=== PATIENT | male | born 1960 ===

== ENCOUNTER 2022-02-19 08:39 | Day surgery (SDC) | payer MEDICARE, OTHER ==
[~2022-02-19] VITALS: Ht 177.8 cm; Wt 85.7 kg
[2022-02-19] MEDS ORDERED: PROP10 (09:07)
[2022-02-19] MEDS ORDERED: CITALOPRAM HBR10 MG (09:07)
--- NOTE | 2022-02-19 09:44 | NUR ---
02/19/22 0943 Rima Ch THREE ATTEMPTS AT IV. FIRST ATTEMPT AT IV BY MA IN RIGHT HAND MISSED. SECOND ATTEMPT AT IV BY MA IN RIGHT AC UNABLE TO ADVANCE. THIRD ATTEMPT AT IV BY MA IN LEFT HAND SUCCESFUL.
== END 2022-02-19 11:25 | disposition home or self-care (01) ==
LOC: ORSCSDS 08:39
PROVIDERS: Surgery
PROC: 0DBN8ZX Excision of Sigmoid Colon, Via Natural or Artificial Opening Endoscopic, Diagnostic (ICD-10-PCS; principal; 2022-02-19 10:15)
PROC: 0DBL8ZX Excision of Transverse Colon, Via Natural or Artificial Opening Endoscopic, Diagnostic (ICD-10-PCS; principal; 2022-02-19 10:15)
DX: Z12.11 Encounter for screening for malignant neoplasm of colon (principal); D12.3 Benign neoplasm of transverse colon; K57.50 Diverticulosis of both small and large intestine without perforation or abscess without bleeding; Z86.010 Personal history of colon polyps; F41.8 Other specified anxiety disorders; R25.1 Tremor, unspecified; Z87.891 Personal history of nicotine dependence
CPT/HCPCS: 88305; J2704; J7120